=== PATIENT | male | born 1950 | race American Indian/Alaskan Native ===

== ENCOUNTER 2019-02-13 14:22 | Outpatient (CLI) | payer OTHER ==
[2019-02-13 15:11] LABS: Blood Urea Nitrogen 11 mg/dL (9-20)
--- NOTE | 2019-02-13 17:05 | Cat Scan Report ---
CT abdomen pelvis wo/w con INDICATION: (R31.9) HEMATURIA. TECHNIQUE: All CT scans at this location are performed using the following dose modulation technique: Automated exposure control. CONTRAST: Omnipaque 350, 100 cc IV injection. COMPARISON: None available. CT abdomen: Precontrast imaging demonstrates no renal or bladder stone. A rim calcification of the la teral aspect of the left kidney (series 2, image 54) measures 1 cm. Mild atherosclerotic calcificatio n seen at the aorta. Postcontrast imaging demonstrates normal enhancement of the parenchymal organs other than a benign-ap pearing right renal cyst. It cannot be determined if calcified lesion at the left kidney demonstrates enhancement. The remaining parenchymal organs are unremarkable. Negative for abdominal mass, fluid collection or inflammation. The bowel is not dilated or thickened. CT PELVIS: The prostate gland is prominently enlarged and contains mild calcification. Negative for p elvic mass, fluid or inflammation. Bilateral groin nodes are prominent greater on the right with the largest node has a greatest short axis diameter of 2 cm. IMPRESSION: 1. Enlarged prostate gland. 2. Prominent groin nodes are likely reactive. 3. Indeterminate calcified left renal lesion. This is difficult to evaluate due to its small size. It would be reasonable to perform follow-up CT in one year. Signer Name: Luis Felipe Kingston MD Signed: 02/13/2019 5:00 PM Workstation Name: [id number]
== END 2019-02-13 14:23 | disposition home or self-care (01) ==
LOC: CT 14:22
PROVIDERS: ATTEND Urology
DX: N40.0 Benign prostatic hyperplasia without lower urinary tract symptoms (principal); R31.9 Hematuria, unspecified
CPT/HCPCS: 36415; 74178; 82565; 84520; Q9967